=== PATIENT | male | born 1945 | race Caucasian/White ===

== ENCOUNTER → 2023-09-29 09:51 | Outpatient (REF) | payer MEDICARE, OTHER, SELFPAY | LOC: RAD 09:51 | PROVIDERS: ATTENDING PHYSICIAN Family Medicine | DX: M25.562 Pain in left knee (principal) | CPT/HCPCS: 73564 ==

== ENCOUNTER 2024-05-18 01:52 | Observation (INO) | payer MEDICARE, OTHER, SELFPAY ==
[2024-05-17 22:09] VITALS: BP 119/72
[2024-05-17 23:47] VITALS: BP 120/77
[2024-05-18] VITALS (19 sets, daily range): BP systolic 88–143; BP diastolic 58–103; PULSE 87–128
[2024-05-18] MEDS: TYLENOL 1000 MG PO (00:52)
[2024-05-18] MEDS: ZOFRAN 4 MG IV (00:52)
[2024-05-18] MEDS: ADACEL 0.5 ML IM (00:54)
--- NOTE | 2024-05-18 01:08 | ED.GENMED ---
History of Present Illness
General
Chief Complaint: Head Injury
Source: patient, records, spouse and family
Exam Limitations: none
Time Seen by Provider: 05/17/24 23:37
Nursing documentation reviewed up to this point in time: agreed with
History of Present Illness
History of Present Illness:
Patient is a 78-year-old male who presents to the emergency department with a laceration to his left scalp. Patient states that he was out at an event and tripped coming down the steps hitting his head. Patient states he was on asphalt does not
remember when his last tetanus shot was. Patient denies any loss of consciousness, visual or speech difficulties. Patient denies any ataxia or focal weakness. Patient denies any neck or back pain. While in the emergency department after he had
his CAT scan he began to vomit. According the patient's family he never vomits. Patient denies syncope, chest pain, shortness of breath or palpitations. Patient denies any abdominal pain. Patient denies any extremity pain. Patient denies any
recent illnesses.
Past History
Past History
ED Past Medical History: Arrthythmia (Atrial fibrillation), HTN and Other (Colon polyps)
Social History
Tobacco: Non-smoker
Review of Systems
Review of Systems
All Other Systems: ROS reviewed and negative except as documented in HPI and ROS
Constitutional: Reports no symptoms
EENT: Reports no symptoms
Respiratory: Reports no symptoms
Cardiac: Reports no symptoms
ABD/GI: Reports nausea and vomiting; Denies abdominal pain
: Reports no symptoms
Musculoskeletal: Denies joint pain, neck pain or back pain
Skin: Reports other (Laceration of scalp)
Neurological: Denies headache or weakness
Hematologic/Lymphatic: Reports bleeding (From scalp)
Psychiatric: Reports no symptoms
Phy Exam
Physical Exam
Physical Exam:
Physical Exam
General: No apparent distress, alert and appropriate, well nourished, well hydrated
HENT: Normocephalic with approximately 4 cm Y shaped left parietal laceration, supple with no lymphadenopathy, no thyromegaly
Eyes: Clear sclera, conjuctiva without injection, extraocular muscles intact
Heart: irregular irregular rhythm and normal rate. No S3, S4. No murmur. No NVD
Lungs: No respiratory distress, no stridor, lung sounds clear and equal bilaterally, chest wall symmetrical and nontender
Abdomen: Soft, nontender, BS good
Neuro: Alert and oriented x 3, CN II - XII intact, no motor focality, no cerebellar dysfunction (although mildly unsteady when standing with eyes closed}
Skin: Laceration as stated above
Psychiatric: well kept. interactive and cooperative
Extremities: No edema, cyanosis, tenderness
Musculoskeletal: No cervical, thoracic or lumbar spine tenderness
Course
Orders/Labs/Results
Orders:
Orders
05/17/24 22:05
CT Head W/o Iv Contrast Urgent
Comment:
Reason For Exam: fall, left sided head strike, on eliquis
05/18/24 00:17
Electrocardiogram (*1) Urgent
Reason for Study: Atrial Fibrillation
EKG- Treatment ONCE
Acetaminophen [Tylenol] 1,000 mg PO NOW STA
Ondansetron Injectable [Zofran] 4 mg IV NOW STA
Tetanus/Diphth/Acelpertussis [Adacel] 0.5 ml IM .ONCE ONE
05/18/24 00:43
Comprehensive Metabolic Panel Urgent
Troponin I Urgent
05/18/24 01:01
Complete Blood Count/No Diff Urgent
Comment: REDRAW
Vital Signs
Initial and Last Documented VS:
Initial Vital Signs
Temp Pulse Resp BP Pulse Ox
97.7 F 54 20 119/72 95
05/17/24 22:09 05/17/24 22:09 05/17/24 22:09 05/17/24 22:09 05/17/24 22:09
Last Documented Vital Signs
Temp Pulse Resp BP Pulse Ox
97.7 F 78 18 120/77 99
05/17/24 22:09 05/17/24 23:47 05/17/24 23:47 05/17/24 23:47 05/17/24 23:47
Procedures
Laceration Closure
Left Upper Lateral Scalp:
Status of Wound: clean
Size of Wound in cm: 4
Description of Wound Edges: ragged and other (Y shape)
Preparation: cleaned with Betadine
Anesthesia: 1% Lidocaine with epi
Revision/Debridement: routine- no revision
Wound exploration: explored to base- no FB
Type of Closure: other (Carlotta)
Skin Closure Material: skin tiara (8)
Number of sutures: 8
*Radiology
Radiology exam reviewed: radiology read reviewed (No hemorrhage)
*Pulse Oximetry
Patient hypoxic: no
*EKG
Interpreted by ED Provider?: Yes
EKG Intrepretation Date: 05/18/24
EKG Intrepretation Time: 01:16
Interpretation: abnormal
Comparison EKG: changes noted (Now in atrial fibrillation as opposed to sinus)
Heart Rate: 94
Rate: normal
Rhythm: a-fib
[place]: left axis deviation
Interval: normal QT interval
QRS Pattern: normal QRS
Ischemia: non-specific ST changes
*Cotton Agent Interpretation
Rate: normal
Interpretation: abnormal
Heart Rate: 78
Rhythm: a-fib
*Critical Care Note
Total Time (30-74mins, 75-104mins- exclusive of procedures): Not Applicable
Update Note
Update Note:
Patient is back in atrial fibrillation and he admits to drinking beer tonight this may attribute to his mildly positive Romberg's. Patient will be admitted for observation due to his atrial fibrillation, vomiting and possible concussion and for
further PT evaluation
ED Attending Note
-
Portions of this chart may have been created with voice recognition software.� Occasional wrong word or��sound alike� substitutions may have occurred due to the inherent limitations of voice recognition software.
Discharge Plan
Departure
Patient Disposition: Admit
Date of Disposition: 05/18/24
Time of Disposition: 01:18
Admit to: Telemetry
Admit to doctor: Hospitalist
Presentation/result/management discussed w/ accepting MD/DO: Hospitalist
Patient with high blood pressure during this ER visit?: No
Condition: Fair
Covid-19: Not Applicable
Discharge Problem:
Laceration of scalp, Cerebral concussion, Atrial fibrillation with controlled ventricular rate
Prescriptions:
No Action
tamsulosin 0.4 MG capsule
0.4 mg PO DAILY
triamcinolone acetonide [Nasacort] 10.8 ML aerosol,spray
10.8 ml NS DAILY
loratadine 10 MG tablet
10 mg PO DAILY
olmesartan 40 MG tablet
40 mg PO DAILY
apixaban [Eliquis] 5 MG tablet
5 mg PO BID
Referrals:
Cem Parish MD [Family Provider] -
Interventions
Interventions:
*Risk Screen - Suicide Last Done: 05/17/24 22:09
*General Assessment Last Done: 05/17/24 22:09
*Neglect/Abuse Screening Last Done: 05/17/24 22:09
ED- Fall Risk Assessment Last Done: 05/17/24 22:09
*ED COVID-19 Vaccine History Last Done: 05/17/24 22:09
ED- Neurological Assessment Last Done: 05/17/24 23:48
ED-Skin Assessment Last Done: 05/17/24 23:49
Discharge Date and Time
Print Language: SYRIAN
[2024-05-18 01:10] LABS: ALT (SGPT) 21 U/L (0-50); AST (SGOT) 25 U/L (17-59); Albumin 4.5 g/dl (3.5-5.0); Alkaline Phosphatase 55 U/L (38-126); Blood Urea Nitrogen 25 mg/dl (9-20); Calcium 9.2 mg/dl (8.4-10.2); Carbon Dioxide 22 mmol/L (22-30); Chloride 102 mmol/L (98-107); Glucose 133 mg/dl (70-99); Potassium 3.9 mmol/L (3.5-5.1); Sodium 140 mmol/L (135-145); Total Bilirubin 0.5 mg/dl (0.2-1.3); Total Protein 6.8 g/dl (6.3-8.2); eGFR > 60.00
[2024-05-18 01:18] LABS: Hematocrit 39.2 % (39.0-52.0); Hemoglobin 13.6 g/dL (13.0-18.0); Mean Corp Hgb Conc. 34.7 g/dL (33.0-37.0); Mean Corpuscular Hgb 30.2 pg (27.0-31.0); Mean Corpuscular Volume 86.9 fL (80.0-94.0); Mean Platelet Volume 9.7 fL (7.4-10.4); Platelet Count 215 10^3/uL (130-400); Red Blood Cell Count 4.51 10^6/uL (4.70-6.10); Red Cell Dist. Width 13.5 % (11.5-14.5); White Blood Cell Count 11.4 10^3/uL (4.8-10.8)
[2024-05-18 01:30] LABS: Troponin I < 0.012 ng/ml
--- NOTE | 2024-05-18 01:35 | HPS.HSE ---
Family Physician
-
Family Physician: Cem Parish
Chief Complaint
-
Fall and laceration of the left head
History of Present Illness
This is a 78-year-old was past medical history of hypertension BPH and atrial fibrillation not on rate controlled not on anticoagulation who presents to the emergency department following a fall while leaving a restaurant.
Patient reported being in usual state of health and going to the restaurant without any issues. On his way out of the restaurant after having a couple of drinks he misjudged the step and fell down 18 his left side and then ultimately scraping his
head on the floor. He was able to get up but he had profuse bleeding and was brought to the emergency department. Patient reported that he has been on anticoagulation for 3 years and never had an issue with bleeding. He has never had any such
traumatic episodes in the past. He currently denies any headache. He denies nausea or vomiting. He denies any palpitations, lightheadedness, chest pain. After evaluation in the ED he was noted to be back in atrial fibrillation with intermittent
rate control. Patient reports asymptomatic cardiac history. He reports that the atrial fibrillation was initially detected incidentally while getting the preoperative evaluation. He did get a cardioversion. He does check his rate via home
monitor and has not been in A-fib since.
In the Emergency Department he was afebrile, blood pressure was 130/77 pulse of 88. ECG showed atrial fibrillation at a rate of [address] or T wave changes. CT of the head shows a small left-sided scalp hematoma.
Patient underwent suturing with clips. CBC was unremarkable. Chemistries were also within normal limits.
Medical History
Past Medical History
Past Medical History: Reports Arrhythmia (Proximal atrial fibrillation) and HTN
Additional Past Medical History:
BPH
Past Surgical History: Reports Other (Hernia repair)
Social History
Tobacco: Non-smoker
Alcohol: Occasional
Drug: None
Personal:
Living: With Family
Employment: Retired
Family History
Family History: Not pertinent
Allergies / Home Medications
Allergies reflects when Allergies were last updated in [facility].
Home Medications with original date entered in [facility]
Allergy/Medication List:
Allergies
Allergy/AdvReac Type Severity Reaction Status Date / Time
No Known Allergies Allergy Verified 05/17/24 22:09
Home Medications
apixaban 5 mg tablet (Eliquis) 5 mg PO BID 05/07/20
loratadine 10 mg tablet 10 mg PO DAILY 05/07/20
olmesartan 40 mg tablet 40 mg PO DAILY 05/07/20
tamsulosin 0.4 mg capsule 0.4 mg PO DAILY 05/07/20
triamcinolone acetonide 55 mcg nasal spray aerosol (Nasacort) 10.8 ml NS DAILY 05/07/20
Review of Systems
-
History Source: Patient
Constitutional: Reports No Symptoms
EENT: Reports No Symptoms
Respiratory: Reports No Symptoms
Cardiac: Reports No Symptoms
Abdomen/GI: Reports No Symptoms
: Reports No Symptoms
Musculoskeletal: Reports No Symptoms
Skin: Reports No Symptoms
Neurological: Reports No Symptoms
Endocrine: Reports No Symptoms
Hematologic/Lymphatic: Reports No Symptoms
Psych: Reports No Symptoms
Physical Exam
Vital Signs
Vital Signs
Temp Pulse Resp BP Pulse Ox
97.7 F 78 18 120/77 99
05/17/24 22:09 05/17/24 23:47 05/17/24 23:47 05/17/24 23:47 05/17/24 23:47
Physical Exam
General: Well Developed, Well Nourished and No Apparent Distress
HEENT: PERRLA and Other (5 cm laceration over the left scalp. Status post suture, clean dry and intact no ongoing bleeding)
Respiratory: Clear
Cardiac: S1/S2 and Irregular Rhythm
Breast: Deferred by me
GI: Soft, Non Tender, Non Distended and Normal Bowel Sounds
Rectal: Deferred by Provider
Genito-urinary: Deferred by me
Musculoskeletal: No Clubbing, No Cyanosis and No Edema
Skin: Warm
Neuro: AO x 3
Hematologic/Lymphatic: No Lymphadenopathy
Psych: Calm
Laboratory Results
-
05/18/24 01:06
05/18/24 00:43
Laboratory Results
Total Bilirubin 0.5 mg/dl (0.2-1.3) 05/18/24 00:43
AST 25 U/L (17-59) 05/18/24 00:43
ALT 21 U/L (0-50) 05/18/24 00:43
Alkaline Phosphatase 55 U/L (38-126) 05/18/24 00:43
Troponin I < 0.012 ng/ml 05/18/24 00:43
Data Reviewed
-
CT Scan: Report Reviewed by me
Medical Tests (Nuc Med, Echo, EKG etc): Image Personally Visualized and interpreted
Lab Data: Labs Reviewed by me
Old Records: Reviewed
Impression/Plan
-
IMPRESSION:
78-year-old with history of atrial fibrillation who is status post a mechanical fall with laceration and a left-sided scalp hematoma status post suturing. ECG shows that he is in A-fib and he has borderline controlled rate ranging from 90-110. He
is asymptomatic from the rhythm and rate. He was a little bit unsteady when he got up to go home. The brain scan was negative for any acute intracranial process.
PLAN:
1. AFIB - Boderline rate control but not on any rate control agents. Patient asymptomatic.
- admit to telemetry observation
- diltiazem 30mg q 6 for now to keep rate < 100
- hold eliquis x 24 hours
- orthostatic vs
2. Head Lac - S/P tiara. No ongoin bleeding. Denies headache. Slightly unsteady. Mechanical fall.
- monitor overnight
- PT eval in am
- pain control
- hold eliquis x 24 hours
3. HTN
- orthostatics
- continue olmesartan for now
DVT PPX - SCDs
Code Status - Full Code
[2024-05-18] MEDS: CARDIZEM 30 MG PO ×2 (02:16→09:41)
[2024-05-18] MEDS: BENICAR 40 MG PO (09:40)
[2024-05-18] MEDS: FLOMAX 0.4 MG PO (09:40)
[2024-05-18] MEDS: CARDIZEM CD 180 MG PO (13:23)
--- NOTE | 2024-05-18 14:34 | CON.CAR ---
Addendum entered and electronically signed by Kade Norton MD 05/18/24 16:29:
patient seen and examined
agree with BARAK Gonzalez's notes and assessment
agree with BARAK Gonzalez's plan
exam:
head lac noted
aao x 3
non focal neurologically
jvp 6
cor irregularly irregular
lungs ctab
abd soft nt nd
no ext edema
aao x3
Impression
Presented 05/17/2024 with mechanical fall resulting in scalp laceration/hematoma
New onset paroxysmal atrial fibrillation with rapid ventricular response
Paroxysmal atrial fibrillation
Status post cardioversion 04/2020Chronic anticoagulation with Eliquis
Hypertension
Recovered tachycardia induced cardiomyopathy
BPH
Echo 03/31/2023: EF 54%. No significant valvular disease, PAP 28 mmHg
Stress echo 07/11/2020: 10:59, 12 METS. Hyperdynamic LV function at peak exercise without focal regional wall motion abnormality. Negative for ischemia. Baseline EF 60%, postexercise 65-70%
Plan:
-Presented 05/17/2024 with mechanical fall resulting in scalp laceration/hematoma. Hemostasis of laceration achieved with tiara and no active bleeding at time of evaluation.
-Head CT 05/17/2024 negative for hemorrhage with small left parietal hematoma.
-Eliquis placed on hold for 24 hours. Last dose 05/17/2024. Repeat head CT pending for afternoon 05/18/2024. If head CT remained stable we will likely resume Eliquis.
-New paroxysmal atrial fibrillation. Patient reports he was in sinus rhythm last week when he utilize his [employer] mobile device
-Heart rates somewhat labile. Baseline heart rate in sinus rhythm is 60's-70's bpm. Would start Cardizem 120 mg twice daily for rate control. Following cardioversion we will consider reducing Cardizem to 120 mg once a day.
-Will arrange for outpatient [facility]/cardioversion to be performed on 05/22/2024 given interrupted anticoagulation this hospitalization.
-Of note patient is leaving for [place] on 05/24/2024
-Outpatient cardiology follow up arranged
Original Note:
Consultation
Consultation Request
Date/Time Consultation Requested: 05/18/2024
Date/Time Consultation Performed: 05/18/2024
Requesting Provider: Dr. Pederson
Performing Provider: Taryn Gonzalez PA-C for Dr. Xuan Short
Reason for Consultation: Atrial fibrillation
Medical History
-
History of Present Illness:
Patient is a 78-year-old male with past medical history significant for paroxysmal atrial fibrillation, chronic anticoagulation on Eliquis, hypertension, recovered tachycardia induced cardiomyopathy and BPH who presented to emergency department
05/17/2024 after having a mechanical fall after walking out of a restaurant. Patient admits he had 3-4 cocktails with dinner and when walking in the parking lot stepped on uneven ground resulting in mechanical fall where he he scraped the left side
of the head. Due to ongoing bleeding he was brought to the emergency room. Head CT was unremarkable except small left parietal scalp hematoma. He required repair of scalp laceration with tiara. Hemostasis has been achieved. Patient was noted
to be in atrial fibrillation with rapid ventricular response in emergency department. Patient reports he checks his heart rate and rhythm 1-2 times a week with [employer] mobile device and this is the first time he has had atrial fibrillation since
2019. He does not have history of falls or balance issues. He has done well on anticoagulation. For rate control he was given short acting diltiazem. Heart rates remain somewhat labile and was given a dose of diltiazem 180 mg x 1 around 1 PM
05/18/2024. Patient is asymptomatic and denies chest pain, shortness of breath, dizziness, lightheadedness, balance issues, headache or visual changes.
Past medical history:
Paroxysmal atrial fibrillation
Status post cardioversion 04/2020
Chronic anticoagulation with Eliquis
Hypertension
Recovered tachycardia induced cardiomyopathy
BPH
Past Medical History
Past Medical History: Other (See HPI)
Past Surgical History: Urological (Prostate biopsy 1999, 2012, 2017) and Other (Right inguinal hernia repair 1999, nasal/sinus polypectomy)
Social History
Tobacco: Former Smoker
Alcohol: Daily (1-2 cocktails or wine)
Drug: None
Personal:
Living: With Family
Employment: Retired
Family History
Family History: Other (Father stroke and seizures; mother emphysema)
Allergies / Home Medications
Allergy/AdvReac Type Severity Reaction Status Date / Time
No Known Allergies Allergy Verified 05/17/24 22:09
�Medication �Instructions �Recorded �Confirmed �Type
apixaban 5 mg tablet (Eliquis) 5 mg PO BID 05/07/20 05/18/24 History
loratadine 10 mg tablet 10 mg PO HS 05/07/20 05/18/24 History
olmesartan 40 mg tablet 40 mg PO HS 05/07/20 05/18/24 History
tamsulosin 0.4 mg capsule 0.4 mg PO HS 05/07/20 05/18/24 History
mometasone 50 mcg/actuation nasal 2 spray intranasal DAILY 05/18/24 05/18/24 History
spray
Review of Systems
-
History Source: Patient
All other systems: Negative unless noted
Physical Exam
Vital Signs
Temp Pulse Resp BP Pulse Ox
97.7 F 117 9 137/83 93
05/17/24 22:09 05/18/24 13:23 05/18/24 07:15 05/18/24 13:23 05/18/24 04:45
GEN: No distress, awake, Ox3
HEENT: Left parietal scalp laceration with tiara intact with achieved hemostasis, supple, anicteric, mmm
LUNGS: CTA, no wheezes/rales
CV: Irregularly irregular, S1/S2, no murmur, rub or gallop
ABD: soft, BS+, NT/ND
EXT: No edema, clubbing or cyanosis
NEURO: Gross non-focal
SKIN: No rash, warm, dry, pink
Lab Results
05/18/24 01:06
05/18/24 00:43
Troponin I < 0.012 ng/ml 05/18/24 00:43
Impression / Plan
-
PCP: Cem Parish
[employer] Trimmer: Ganesh Telles
Impression
Presented 05/17/2024 with mechanical fall resulting in scalp laceration/hematoma
New onset paroxysmal atrial fibrillation with rapid ventricular response
Paroxysmal atrial fibrillation
Status post cardioversion 04/2020
Chronic anticoagulation with Eliquis
Hypertension
Recovered tachycardia induced cardiomyopathy
BPH
Echo 03/31/2023: EF 54%. No significant valvular disease, PAP 28 mmHg
Stress echo 07/11/2020: 10:59, 12 METS. Hyperdynamic LV function at peak exercise without focal regional wall motion abnormality. Negative for ischemia. Baseline EF 60%, postexercise 65-70%
Plan:
-Presented 05/17/2024 with mechanical fall resulting in scalp laceration/hematoma. Hemostasis of laceration achieved with tiara and no active bleeding at time of evaluation.
-Head CT 05/17/2024 negative for hemorrhage with small left parietal hematoma.
-Eliquis placed on hold for 24 hours. Last dose 05/17/2024. Repeat head CT pending for afternoon 05/18/2024. If head CT remained stable we will likely resume Eliquis.
-New paroxysmal atrial fibrillation. Patient reports he was in sinus rhythm last week when he utilize his [employer] mobile device
-Heart rates somewhat labile. Baseline heart rate in sinus rhythm is 60's-70's bpm. Would start Cardizem 120 mg twice daily for rate control. Following cardioversion we will consider reducing Cardizem to 120 mg once a day.
-Will arrange for outpatient [facility]/cardioversion to be performed on 05/22/2024 given interrupted anticoagulation this hospitalization.
-Of note patient is leaving for [place] on 05/24/2024
-Outpatient cardiology follow up arranged
[facility] 05/18/2024:
Patient is a 78-year-old male with past medical history significant for paroxysmal atrial fibrillation, chronic anticoagulation on Eliquis, hypertension, recovered tachycardia induced cardiomyopathy and BPH who presented to emergency department
05/17/2024 after having a mechanical fall after walking out of a restaurant. Patient admits he had 3-4 cocktails with dinner and when walking in the parking lot stepped on uneven ground resulting in mechanical fall where he he scraped the left side
of the head. Due to ongoing bleeding he was brought to the emergency room. Head CT was unremarkable except small left parietal scalp hematoma. He required repair of scalp laceration with tiara. Hemostasis has been achieved. Patient was noted
to be in atrial fibrillation with rapid ventricular response in emergency department. Patient reports he checks his heart rate and rhythm 1-2 times a week with [employer] mobile device and this is the first time he has had atrial fibrillation since
2019. He does not have history of falls or balance issues. He has done well on anticoagulation. For rate control he was given short acting diltiazem. Heart rates remain somewhat labile and was given a dose of diltiazem 180 mg x 1 around 1 PM
05/18/2024. Patient is asymptomatic and denies chest pain, shortness of breath, dizziness, lightheadedness, balance issues, headache or visual changes.
Data Reviewed
-
EKG: Report Reviewed by me, Discussed with Physician, Discussed with Patient and Discussed with Family
CT Scan: Report Reviewed by me, Discussed with Physician, Discussed with Patient and Discussed with Family
Labs: Labs Reviewed by me, Discussed with Physician, Discussed with Patient and Discussed with Family
Old Records: Reviewed
--- NOTE | 2024-05-18 16:12 | W.PN.HOSP.TC ---
Addendum entered and electronically signed by Jose Pederson MD 05/18/24 16:52:
dictation done 05/18
Original Note:
Today's Communication/Plan
-
cardizem 120mg BID
eliquis
DIVINE/cardioversion 05/22 - f/u cards
staple removal outpatient
Assessment / Plan
Assessment / Plan
Physical Exam
General: Well Developed, Well Nourished and No Apparent Distress
HEENT: PERRLA and Other (5 cm laceration over the left scalp. Status post suture, clean dry and intact no ongoing bleeding)
Respiratory: Clear
Cardiac: S1/S2 and Irregular Rhythm
Breast: Deferred by me
GI: Soft, Non Tender, Non Distended and Normal Bowel Sounds
Rectal: Deferred by Provider
Genito-urinary: Deferred by me
Musculoskeletal: No Clubbing, No Cyanosis and No Edema
Skin: Warm
Neuro: AO x 3
Hematologic/Lymphatic: No Lymphadenopathy
Psych: Calm
78-year-old with history of atrial fibrillation who is status post a mechanical fall with laceration and a left-sided scalp hematoma status post suturing. ECG shows that he is in A-fib and he has borderline controlled rate ranging from 90-110. He
is asymptomatic from the rhythm and rate. He was a little bit unsteady when he got up to go home. The brain scan was negative for any acute intracranial process.
PLAN:
1. AFIB - with RVR
-was sinus prior to
-Started on Cardizem CD 120mg BID
- Planned DIVINE/Cardioversion 05/22
-F/u cards outpatient
-Resume Eliquis once CT head clear
-ED 60-65%
#Head Lac - S/P tiara. No ongoin bleeding. Denies headache. Mechanical fall after drinking and missing a step; no dizziness/lightheadedness
- PT eval in am
- pain control
- repeat ct head - if clear - resume eliquis
-remove tiara outpatient
#HTN
- resume
- continue olmesartan for now
DVT PPX - SCDs
Code Status - Full Code
More than 30 minutes spent in discharge including
Final examination of the patient
Summarizing hospital stay
Instructions for continuing care to all relevant caregivers
Preparation of discharge records, prescriptions, and referral forms
Total time spent (35 in minutes):
Anticipated Discharge: Today
Subjective/Interval History
-
Date of Service: May 18, 2024
sitting in chair, afib with rvr
Objective Data
-
Vital Signs:
Vital Signs
Temp Pulse Resp BP Pulse Ox
97.8 F 117 9 137/83 93
05/18/24 16:00 05/18/24 13:23 05/18/24 07:15 05/18/24 13:23 05/18/24 04:45
I&O
05/17/24 05/18/24 05/19/24
06:59 06:59 06:59
Intake Total 480 / 480
Output Total 100 / 100 950 / 950
Balance -100 / -100 -470 / -470
Review of Systems
-
History Source: Patient
All other systems: Not reviewed unless documented
Data Reviewed
-
CT Scan: Image personally visualized and interpreted and Report Reviewed by me
Labs: Labs Reviewed by me
--- NOTE | 2024-05-18 16:39 | W.DS.TRANS ---
DC Summary - Analytical Lead
-
Discharge Instructions:
Discharge Diagnosis/Procedures #AFIB
#Head Lac - S/P [facility]
Diet Low Cholesterol,Low Fat
Activity As tolerated
Others Tests You are scheduled for transesophageal echo/
cardioversion on May 22, 2024 at [place]
[facility]. You will be called the day prior with
exact time for procedure.
Instructions: Atrial Fibrillation (DC)
Laceration Repair With [facility]
Stand-Alone Forms:
Changes to Home Medications: Yes
Discharge Medications:
DC Medications w/original date entered in [facility]
apixaban 5 mg tablet (Eliquis) 5 mg PO BID 05/07/20
loratadine 10 mg tablet 10 mg PO HS 05/07/20
olmesartan 40 mg tablet 40 mg PO HS 05/07/20
tamsulosin 0.4 mg capsule 0.4 mg PO HS 05/07/20
diltiazem HCl 120 mg capsule,extended release 24 hr 120 mg PO BID 30 days #60 caps 05/18/24
mometasone 50 mcg/actuation nasal spray 2 spray intranasal DAILY 05/18/24
Home Medication Changes
diltiazem HCl 120 mg capsule,extended release 24 hr 120 mg PO BID 30 days #60 caps 05/18/24
Pending Results: No
--- NOTE | 2024-05-18 17:30 | CM ---
CM reviewed medical records. Plan for discharge to home. PT noted no skilled PT needs.
PLAN: home no needs.
== END 2024-05-18 18:04 | disposition home or self-care (01) ==
LOC: ED 01:52
PROVIDERS: ADMITTING PHYSICIAN Internal Medicine; ATTENDING PHYSICIAN Internal Medicine; EMERGENCY PHYSICIAN Emergency Medicine; FAMILY PHYSICIAN Family Medicine; OTHER PHYSICIAN Internal Medicine Cardiovascular Disease
DX: S01.01XA Laceration without foreign body of scalp, initial encounter (principal); I48.0 Paroxysmal atrial fibrillation; W01.10XA Fall on same level from slipping, tripping and stumbling with subsequent striking against unspecified object, initial encounter; Y93.01 Activity, walking, marching and hiking; Y92.511 Restaurant or cafe as the place of occurrence of the external cause; R11.10 Vomiting, unspecified; I45.10 Unspecified right bundle-branch block; I34.0 Nonrheumatic mitral (valve) insufficiency; I10 Essential (primary) hypertension; N40.0 Benign prostatic hyperplasia without lower urinary tract symptoms; I42.8 Other cardiomyopathies; R00.0 Tachycardia, unspecified; Z86.0100 Personal history of colon polyps, unspecified; Z79.01 Long term (current) use of anticoagulants; Z87.891 Personal history of nicotine dependence
CPT/HCPCS: 12002; 70450; 80053; 84484; 85027; 90471; 90715; 93005; 93306; 96374; 97162; 99285; G0378

== ENCOUNTER 2024-05-22 09:15 | Day surgery (SDC) | payer MEDICARE, OTHER, SELFPAY ==
[2024-05-22 09:49] VITALS: BMI 26.7
== END 2024-05-22 12:27 | disposition home or self-care (01) ==
LOC: CATH 09:15
PROVIDERS: ATTENDING PHYSICIAN Internal Medicine Cardiovascular Disease; FAMILY PHYSICIAN Family Medicine; OTHER PHYSICIAN Nuclear Medicine Nuclear Cardiology
DX: I48.0 Paroxysmal atrial fibrillation (principal); I08.1 Rheumatic disorders of both mitral and tricuspid valves; Z79.01 Long term (current) use of anticoagulants; Z79.899 Other long term (current) drug therapy; I08.8 Other rheumatic multiple valve diseases
CPT/HCPCS: 93312; 93320; 93325; 92960; 93005

== ENCOUNTER 2024-12-18 06:19 | Day surgery (SDC) | payer MEDICARE, OTHER, SELFPAY | END 2024-12-18 09:37 | disposition home or self-care (01) | LOC: GI 06:19 | PROVIDERS: ATTENDING PHYSICIAN Internal Medicine Gastroenterology | DX: Z12.11 Encounter for screening for malignant neoplasm of colon (principal); D12.4 Benign neoplasm of descending colon; K57.30 Diverticulosis of large intestine without perforation or abscess without bleeding; K64.8 Other hemorrhoids; Z86.0101 Personal history of adenomatous and serrated colon polyps; Z79.01 Long term (current) use of anticoagulants | CPT/HCPCS: 45385; 45380; 88305 ==

== ENCOUNTER → 2025-03-13 10:02 | Outpatient (REF) | payer MEDICARE, OTHER, SELFPAY ==
[2025-03-13 11:12] LABS: C-Reactive Protein < 5.00 mg/L (0.0-10.00)
[2025-03-14 13:03] LABS: Rheumatoid Agglutinin Less Than 10 IU (<10 IU)
[2025-03-14 15:31] LABS: Lyme Antibody Screen, EIA Negative (Negative)
== END ==
LOC: REG 10:02
PROVIDERS: FAMILY PHYSICIAN Family Medicine
DX: M25.50 Pain in unspecified joint (principal)
CPT/HCPCS: 36415; 85652; 86140; 86430; 86618

== ENCOUNTER 2025-06-03 06:56 | Day surgery (SDC) | payer MEDICARE, OTHER, SELFPAY ==
[2025-06-03 08:47] VITALS: BMI 25.6
== END 2025-06-03 09:10 | disposition home or self-care (01) ==
LOC: CATH 06:56
PROVIDERS: ATTENDING PHYSICIAN Internal Medicine Cardiovascular Disease; FAMILY PHYSICIAN Family Medicine; OTHER PHYSICIAN Nuclear Medicine Nuclear Cardiology
DX: I48.0 Paroxysmal atrial fibrillation (principal); I10 Essential (primary) hypertension; I42.9 Cardiomyopathy, unspecified; Z79.01 Long term (current) use of anticoagulants; Z79.899 Other long term (current) drug therapy
CPT/HCPCS: 92960; 93005

== ENCOUNTER → 2025-07-03 10:22 | Outpatient (REF) | payer MEDICARE, OTHER, SELFPAY | LOC: RAD 10:22 | PROVIDERS: FAMILY PHYSICIAN Family Medicine | DX: R25.2 Cramp and spasm (principal); R97.20 Elevated prostate specific antigen [PSA] | CPT/HCPCS: 72020; 72190; 73552 ==

== ENCOUNTER → 2025-07-23 13:37 | Outpatient (REF) | payer MEDICARE, OTHER, SELFPAY | LOC: DHSLP 13:37 | PROVIDERS: ATTENDING PHYSICIAN Family Medicine | DX: G47.33 Obstructive sleep apnea (adult) (pediatric) (principal) | CPT/HCPCS: 95800 ==